=== PATIENT | female | born 1950 | race Caucasian/White ===

== ENCOUNTER → 2018-05-21 | Day surgery (SDC) | payer MEDICARE, OTHER ==
[2018-05-18 13:07] LABS: BASOPHILS % 0.6 % (0.0-1.0); EOSINOPHILS # (AUTO) 0.2 (0.0-0.4); EOSINOPHILS % 3.6 % (0.0-6.0); HEMATOCRIT 38.9 % (34.2-44.1); HEMOGLOBIN 12.9 g/dL (12.0-16.0); LYMPHOCYTES # (AUTO) 2.1 (1.0-3.2); MEAN CORPUSCULAR HEMOGLOBIN 28.9 pg (28-32); MEAN CORPUSCULAR HGB CONC 33.2 g/dL (31-35); MONOCYTES # (AUTO) 0.6 (0.2-0.8); MONOCYTES % 8.9 % (4.4-11.3); NEUTROPHILS # (AUTO) 3.7 (2.1-6.9); NEUTROPHILS % 55.6 % (38.7-80.0); PLATELET COUNT 175 x10e3/uL (140-360); RED BLOOD COUNT 4.47 x10e6/uL (3.6-5.1); RED CELL DISTRIBUTION WIDTH 12.4 % (11.7-14.4)
--- NOTE | 2018-05-18 14:53 | Diagnostic Imaging Report ---
PROCEDURE: Frontal and lateral views of the chest. COMPARISON: None. INDICATIONS: PRE OP CXR FOOT SURGERY FINDINGS: Lines/tubes: None. Lungs: The lungs are well inflated and clear. There is no evidence of pneumonia or pulmonary edema. Pleura: There is no pleural effusion or pneumothorax. Heart and mediastinum: The heart and the mediastinum are normal. Bones: No acute bony abnormality. IMPRESSION: 1. No acute cardiopulmonary abnormalities. Long Gant M.D. Dictated by: Long Gant M.D. on 05/18/2018 at 12:55 Electronically approved by: Long Gant M.D. on 05/18/2018 at 12:55
[2018-05-18 15:03] LABS: ANION GAP 7.2 mmol/L (8-16); BLOOD UREA NITROGEN 20 mg/dL (8-26); BUN/CREATININE RATIO 22 (6-25); CARBON DIOXIDE 34 mmol/L (22-32); CHLORIDE 105 mmol/L (101-111); CREATININE, SERUM 0.9 mg/dL (0.6-1.1); EST GLOMERULAR FILTRATION RATE > 60 ML/MIN (60-); POTASSIUM 5.2 mmol/L (3.6-5.1); SODIUM 141 mmol/L (136-144)
[2018-05-18 15:04] LABS: GLUCOSE 110 mg/dL (74-118)
[2018-05-19 03:26] LABS: CALCIUM 10.1 mg/dL (8.4-10.2)
[~2018-05-21] MED LIST: ATORVASTATIN CA10 MG PO; BUPIVACAINE HCL 0.5% 10ML MPF VIAL INJ ONE; CALCIUM + VITA1 EACH PO; CEFAZOLIN SOD 2 GM/D5W 50ML 50 ML IV ONE; CETIRIZINE; DEXAMETHASONE SOD PHOS INJ 4 MG/ML VIAL ONE; EPHEDRINE SULFATE INJ 50 MG/10 ML SYR ONE; FENTANYL CITRATE/PF 100MCG/2 ML INJ ONE; KETOROLAC TROMETHAMINE 30 MG/ML VIAL ONE; KRILL OIL500 MG PO; LIDOCAINE HCL 2% LOCAL INJ 5 ML SDV VIAL INJ ONE; MIDAZOLAM HCL 2 MG/2 ML VIAL ONE; ONDANSETRON HCL INJ 2 MG/ML VIAL ONE; PROPOFOL IV EMULSION 10 MG/ML 20 ML VIAL ONE; SEVOFLURANE INHAL SOLN 250 ML PEN BTL ONE; ZYRTEC10 M3 PO
--- NOTE | 2018-05-27 22:34 | Operative Report ---
DATE OF PROCEDURE: May 21, 2018 ROOM NUMBER: [facility]. PREOPERATIVE DIAGNOSES 1. 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 2. Nerve entrapment 2nd intermetatarsal space, right foot. 3. Rigidly contracted hammertoes, 2nd digit, right foot. POSTOPERATIVE DIAGNOSIS: ANESTHESIA: General endotracheal. PROCEDURE LIST 1. Modified Juan bunionectomy of the right foot. 2. Neurolysis, 2nd intermetatarsal space, right foot. 3. Arthrodesis, 2nd digit, right foot. PROCEDURE IN DETAIL: The patient was taken to the operating room in a mildly state and placed upon the operating table in supine position. Following induction of general anesthetic, the right lower extremity was elevated at 60 degrees to exsanguinate before inflating the pneumatic thigh tourniquet 350 mmHg for hemostasis. Right lower extremity was placed upon the operating table prior to performing the following procedure: Modified Juan bunionectomy of the right foot. An approximately 6-cm dorsal linear incision made overlying the dorsomedial aspect of 1st metatarsophalangeal joint of the right foot. Incision was deepened via sharp and blunt dissection at the level of the dorsal capsular structure. Care was taken to identify and retract all vital structures encountered. Head of the 1st metatarsal below the surgical site, remodeled utilizing oscillating saw. Conjoined tendon of the adductor hallucis muscle was identified and tenotomized. The medial aspect of the bunion was then further remodeled and the [id number] V-osteotomy was placed at the apex distally and base proximally to allow for relative shift laterally of the head along the proximal segment. After remodeling, it was irrigated with copious amounts of sterile saline solution. Deep closure with 3-0 Vicryl, skin closure 4-0 Vicryl and 4-0 nylon. Attention then directed to 2nd intermetatarsal space. A linear longitudinal incision made overlying the 2nd intermetatarsal space for neurolysis of the 2nd intermetatarsal space. Incision was deepened via sharp and blunt dissection at the level of the transverse intermetatarsal ligament. Care was taken to identify and retract all vital structures encountered. The ligament was sectioned and largely lying underneath the 3rd metatarsal, as well as the 2nd metatarsal was a space-occupying lesion, so the nerve decompression needed to follow. The lesion was removed. The nerve was decompressed, which allowed for relative shift lateral-méndez. Attention was then directed to the 2nd digit, where rigidly contracted hammertoe was noted. Linear incision was made overlying the 2nd digit. The head of the proximal phalanx below the surgical site utilizing a hammertoe repair system from [employer]. The head of the proximal phalanx was remodeled with base of the intermediate phalanx as well. The insertion of K-wire and pin was performed and the digit retrograded onto the pin. Excellent fixation was noted. Deep closure and irrigation with 3-0 Vicryl and 4-0 Vicryl, and pin was cut with its appropriate length. All wounds having been closed, injected with 0.5 Marcaine, Decadron [place], and human tissue allograft. The area was then released with regards to a tourniquet and normal hyperemic flush was noted to all digits of the right foot and patient left the operating room, vital signs stable in apparent satisfactory condition, having tolerated both anesthetic and procedure very well. Job#: [id number] CQ
== END | disposition home or self-care (01) ==
LOC: OR 07:44
PROVIDERS: ATTEND Podiatrist Foot Surgery
DX: M20.11 Hallux valgus (acquired), right foot (principal); G58.8 Other specified mononeuropathies; M20.41 Other hammer toe(s) (acquired), right foot; Z88.6 Allergy status to analgesic agent; Z01.810 Encounter for preprocedural cardiovascular examination; Z01.812 Encounter for preprocedural laboratory examination; Z01.818 Encounter for other preprocedural examination
CPT/HCPCS: 28045; 28285; 28296; 36415 ×2; 64704; 71046; 80048; 85025; 93005; C1713 ×2; J1100; J1885; J2001; J2250; J2405; 76001